=== PATIENT | female | born 1985 | race Caucasian/White ===

== ENCOUNTER 2018-05-03 23:59 | Emergency (ER) | payer MEDICAID ==
[~2018-05-03] VITALS: Ht 167.6 cm; Wt 79.4 kg
[2018-05-04] MEDS ORDERED: HYDROcodone/APAP 5/325MG 1 TAB TABLET PO ONE (01:00)
[2018-05-04 01:15] VITALS: BP 136/76
[2018-05-04] MEDS ORDERED: ONDANSETRON ODT 4 MG TAB.RAPDIS. PO ONE (01:15)
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
== END 2018-05-04 01:22 | disposition home or self-care (01) ==
LOC: ER 23:59 → EEVIPCON 23:59 → ER 05-04 01:22
DX: S06.0X0A Concussion without loss of consciousness, initial encounter (principal); S00.531A Contusion of lip, initial encounter; W50.0XXA Accidental hit or strike by another person, initial encounter; Y93.89 Activity, other specified; Y92.89 Other specified places as the place of occurrence of the external cause; Y99.8 Other external cause status
CPT/HCPCS: 99283; Q0162

== ENCOUNTER 2019-11-30 19:37 | Emergency (ER) | payer MEDICAID ==
[~2019-11-30] VITALS: Ht 167.6 cm; Wt 80.9 kg
[2019-11-30 19:56] LABS: BILIRUBIN,URINE NEGATIVE (NEG); CLARITY,URINE TURBID; COLOR,URINE YELLOW; NITRITE,URINE POSITIVE (NEG); PROTEIN,URINE 100 mg/dL (NEG-TRACE)
[2019-11-30 20:01] LABS: SQUAMOUS EPITHELIAL CELL,UR MANY /LPF
[2019-11-30 20:02] LABS: BACTERIA,URINE MOD /HPF (0-FEW); RBC,URINE 0 /HPF (0-2); WBC,URINE TNTC /HPF (0-4)
[2019-11-30 20:28] LABS: PREG TEST PT QUAL NEGATIVE (NEG)
[2019-11-30] MEDS ORDERED: CEPH-264 PO (20:30)
--- NOTE | 2019-11-30 20:30 | PHYS DOC ---
Past Medical History Past Medical History: No Pertinent History Past Surgical History: No Surgical History Smoking Status: Current Every Day Smoker Alcohol Use: Occasionally Drug Use: Marijuana General Adult EDM: Chief Complaint: FLANK PAIN HPI: HPI: Patient is a 34 year old female at 6 weeks who presents with bilateral flank pain, lower abdominal pain, dysuria. Patient states that she had a vaginal uncomplicated delivery 6 weeks ago. She has had intercourse with her partner since then and states that she recently found out that he cheated on her. She is concerned about STDs. She had significant post bleeding but this stopped 2 weeks ago. She is unsure if she is having vaginal discharge but thinks that she may be. She denies any hematuria. She has not had any fevers, chills, sweats. She does have significant dysuria anytime she urinates and feels like she needs to urinate all the time. The symptoms all started within the last week. She did not have significant issues right after delivery. Review of Systems: Review of Systems: General: Denies fever, chills, sweats, fatigue Eyes: Denies drainage, blurred vision HENT: Denies rhinorrhea, sore throat Respiratory: Denies cough, shortness of breath, wheezing Cardiac: Denies edema, palpitations, chest pain GI: Reports abdominal pain, flank pain, nausea, dysuria, vaginal discharge MSK: Denies back pain, neck pain Skin: Denies rash, jaundice Neuro: Denies headache, dizziness Psychiatric: Denies SI/HI Heart Score: Risk Factors: Risk Factors: DM, Current or recent (<one month) smoker, HTN, HLP, family history of CAD, obesity. Risk Scores: Score 0 - 3: 2.5% MACE over next 6 weeks - Discharge Home Score 4 - 6: 20.3% MACE over next 6 weeks - Admit for Clinical Observation Score 7 - 10: 72.7% MACE over next 6 weeks - Early Invasive Strategies Allergies: Allergies: Allergies Coded Allergies Type Severity Reaction Last Updated Verified No Known Drug Allergies 10/25/13 No Physical Exam: PE: Constitutional: Well developed, well nourished, no acute distress, non-toxic appearance. HENT: Normocephalic, atraumatic, bilateral external ears normal, nose normal. Eyes: PERRLA, EOMI, conjunctiva normal, no discharge. Neck: Normal range of motion, no stridor. Cardiovascular: Heart rate regular rhythm Lungs & Thorax: Respirations even and unlabored, no retractions, no respiratory distress Pelvic Exam: [employer] present Abdomen: Bilateral CVA tenderness, lower abdominal tenderness, soft External Genitalia: Rash to bilateral thighs with satellite lesions Speculum: Normal vaginal mucosa, minimal white discharge Bimanual: No adnexal masses or tenderness, No CMT Skin: Warm, dry, no erythema, no rash. Back: No tenderness Extremities: No cyanosis, ROM intact, no edema. Neurologic: Alert and oriented X 3, no focal deficits noted. Psychologic: Affect normal, judgment normal, mood normal. Current Patient Data: Labs: Laboratory Tests Test 11/30/19 19:45 11/30/19 19:49 Urine Collection Type Unknown Urine Color Yellow Urine Clarity Turbid Urine pH 6.0 (<5.0-8.0) Urine Specific [place] 1.015 (1.000-1.030) Urine Protein 100 mg/dL (NEG-TRACE) Urine Glucose (UA) Negative mg/dL (NEG) Urine Ketones (Stick) Negative mg/dL (NEG) Urine Blood Small (NEG) Urine Nitrite Positive (NEG) Urine Bilirubin Negative (NEG) Urine Urobilinogen Dipstick 1.0 mg/dL (0.2 mg/dL) Urine Leukocyte Esterase Large (NEG) Urine RBC 0 /HPF (0-2) Urine WBC Tntc /HPF (0-4) Urine Squamous Epithelial Cells Many /LPF Urine Transitional Epithelial Cells Few /LPF Urine Bacteria Mod /HPF (0-FEW) POC Urine HCG, Qualitative Hcg negative (Negative) EKG: EKG: [] Radiology/Procedures: Radiology/Procedures: [] Course & Med Decision Making: Course & Med Decision Making Patient is a 34-year-old female who presents to the emergency room with bilateral flank pain, abdominal pain, dysuria, and possible vaginal discharge. Pelvic exam shows minimal white discharge, normal cervix, no cervical motion tenderness or uterine tenderness on exam. Ultrasound does not show any retained products. Patient is tachycardic and was given fluids which helped with her tachycardia. It is likely given her UA that patient has pyelonephritis. She also has bacterial vaginosis. I did test her for sexually transmitted diseases as she requested. She has opted not to do treatment until she gets the test results back. I have discussed with her that if she develops fever, her flank pain is not improving, she feels any worse she should return to the emergency room for reevaluation. Patient's test results and vitals while in the ED were fully reviewed and discussed with the patient. Patient is stable and at this time does not need admission to the hospital. We have discussed strict return precautions and the importance of following up with their Primary Care Physician. Patient stated understanding and was given an opportunity to ask any questions. Giovana Disclaimer: Giovana Disclaimer: This electronic medical record was generated, in whole or in part, using a voice recognition dictation system. Departure Departure Impression: Primary Impression: Pyelonephritis Disposition: HOME, SELF-CARE Condition: STABLE Referrals: NO PCP (PCP) Patient Instructions: Pyelonephritis, Adult, [id number] Scripts Metronidazole (FLAGYL) 500 Mg Tablet 1 TAB PO BID, #14 TAB Prov: LEORA JORGENSEN MD 11/30/19 Fluconazole (DIFLUCAN) 150 Mg Tablet 1 TAB PO ONCE, #1 TAB 1 Refill Prov: LEORA JORGENSEN MD 11/30/19 Cephalexin (KEFLEX) 500 Mg Capsule 1 CAP PO Q12HR for 14 Days, #28 CAP Prov: LEORA JORGENSEN MD 11/30/19 LEORA JORGENSEN MD Nov 30, 2019 20:30
[2019-11-30] MEDS ORDERED: cefTRIAXone IV Push 1 GM VIAL. IVP ONE (21:00)
[2019-11-30 21:09] LABS: BASO % 0 % (0-3); EOS # 0.2 x10^3/uL (0.0-0.7); EOS % 2 % (0-3); HEMATOCRIT 42.4 % (36.0-47.0); HEMOGLOBIN 14.1 g/dL (12.0-15.5); LYMPH # 3.7 x10^3/uL (1.0-4.8); LYMPH % 29 % (24-48); MEAN CORPUSCULAR HEMOGLOBIN 28 pg (25-35); MEAN CORPUSCULAR HGB CONC 33 g/dL (31-37); MEAN CORPUSCULAR VOLUME 85 fL (79-100); MONO # 1.1 x10^3/uL (0.0-1.1); MONO % 9 % (0-9); NEUT # 7.6 x10^3/uL (1.8-7.7); NEUT % 60 % (31-73); PLATELET COUNT 348 x10^3/uL (140-400); RED BLOOD COUNT 4.97 x10^6/uL (3.50-5.40); RED CELL DISTRIBUTION WIDTH 15.3 % (11.5-14.5); WHITE BLOOD COUNT 12.6 x10^3/uL (4.0-11.0)
[2019-11-30 21:15] LABS: CALCIUM 9.1 mg/dL (8.5-10.1); CREATININE 0.9 mg/dL (0.6-1.0); GFR 72.6; POTASSIUM 3.5 mmol/L (3.5-5.1)
[2019-11-30 21:18] LABS: ALBUMIN 3.7 g/dL (3.4-5.0); ALBUMIN/GLOBULIN RATIO 0.9 (1.0-1.7); TOTAL BILIRUBIN 0.5 mg/dL (0.2-1.0); TOTAL PROTEIN 7.7 g/dL (6.4-8.2)
--- NOTE | 2019-11-30 22:22 | RAD ---
Exam: Ultrasound pelvis Indication: 6 weeks , vaginal discharge, fever Technique: Real-time grayscale and color Doppler images of the pelvis were obtained by the department composition molder. Comparisons: None FINDINGS: Uterus measures 10.8 x 6.1 x 5.4 cm. Endometrium measures 11 mm in thickness. No vascular flow identified within the endometrium. Right ovary measures 3.3 x 1.9 x 1.8 cm. Left ovary measures 2.9 x 2.1 x 2.2 cm. Basilar flow identified within the ovaries bilaterally. No free fluid. IMPRESSION: 1. Endometrium measures 11 mm in thickness. No vascular flow identified within the endometrium to suggest retained products. 2. Normal sonographic appearance of the ovaries. Electronically signed by: Selwyn Hwang MD (11/30/2019 10:20 PM) [id number]
[2019-11-30] MEDS ORDERED: IV NORMAL SALINE 1000ML BAG 1,000 ML IV ONE (23:15)
[2019-11-30] MEDS ORDERED: FLUCONAZOLE 100 MG TABLET. PO ONE (23:30)
[2019-11-30] MEDS ORDERED: FLUC150T PO (23:32)
[2019-11-30] MEDS ORDERED: METR500T PO (23:34)
[2019-11-30 23:45] VITALS: BP 147/87
== END 2019-11-30 23:51 | disposition home or self-care (01) ==
LOC: ER 19:37
DX: O86.21 Infection of kidney following delivery (principal); O99.335 Smoking (tobacco) complicating the puerperium
CPT/HCPCS: 36415; 76856; 80053; 81001; 81025; 84703; 85025; 87040; 87491; 87591; 96374; 99285; J0696; J7030; Q0111